=== PATIENT | male | born 1980 | race Caucasian/White ===

== ENCOUNTER 2023-08-12 12:13 | Outpatient (CLI) | payer BC, MEDICAID, SELFPAY ==
--- NOTE | 2023-08-12 12:30 | CT_ITS ---
WS: [id number] CT chest w con* [id number] HISTORY: R91.1 - Solitary pulmonary nodule TECHNIQUE: Axial imaging performed through the thorax. Coronal and sagittal reformats are submitted. All CT scans at [facility] use at least one of these dose optimization techniques: automated exposure control; mA and/or kV adjustment per patient size (includes targeted exams where dose is mat ched to clinical indication); or iterative reconstruction. CONTRAST: Omnipaque 350; 100 mL IV. DLP: 341.59 mGy.cm COMPARISON: None available. Lungs and central airway: Lungs are well aerated. There are 2, noncalcified pulmonary nodules. Micron odule image 25 of series 4 in the LEFT upper lobe. There is an additional nodule also less than 3 mm, image 45 of series 4 at the RIGHT lung base. Pleura: Normal. No pleural effusion. Heart and pericardium: Normal size heart with no pericardial effusion. Mediastinum and adalid: Small mediastinal and hilar lymph nodes. No adenopathy. Vessels: Normal size aortic and pulmonary artery. No coronary artery calcifications. Chest wall and lower neck: No soft tissue masses. Upper abdomen: Normal. Osseous structures: No destructive process. IMPRESSION: 1. There are 2 noncalcified pulmonary micronodules. One in the LEFT upper lobe and one at the RIGHT l rob base as described above. No prior studies or report for comparison. 2. No adenopathy or pneumonia.
[2023-08-12] MEDS: iohexol 350 mg/mL 500 mL Btl (per mL) IV (12:31)
== END 2023-08-12 12:14 | disposition home or self-care (01) ==
PROVIDERS: PCP Nurse Practitioner Family; Visit Provider Nurse Practitioner Family
DX: R91.8 Other nonspecific abnormal finding of lung field (principal)
CPT/HCPCS: 71260; Q9967

== ENCOUNTER → 2024-01-19 10:26 | Outpatient (BNVA) | payer BC, MEDICAID, SELFPAY | PROVIDERS: PCP Nurse Practitioner Family; Visit Provider Nurse Practitioner Family | DX: I10 Essential (primary) hypertension (principal) | CPT/HCPCS: 80053; 80061; 84443; 85025 ==

== ENCOUNTER 2024-08-30 08:00 | Outpatient (CLI) | payer BC, MEDICAID, SELFPAY ==
--- NOTE | 2024-08-30 08:00 | CT_ITS ---
WS: [id number] CT chest w con* [id number] HISTORY: R91.1 - Solitary pulmonary nodule TECHNIQUE: Axial imaging performed through the thorax. Coronal and sagittal reformats are submitted. All CT scans at [facility] use at least one of these dose optimization techniques: automated exposure control; mA and/or kV adjustment per patient size (includes targeted exams where dose is mat ched to clinical indication); or iterative reconstruction. CONTRAST: Omnipaque 350; 100 mL IV. DLP: 375.01 mGy.cm COMPARISON: 08/12/2023 Lungs and central airway: Slight pulmonary hyperexpansion. Previously described pulmonary nodules hav e not increased in size. LEFT upper lobe pulmonary nodules not definitely visualized today. 4 mm nodu le at the RIGHT lung base is unchanged. There is an additional nodule in the LEFT lower lobe measurin g 3.5 mm which was probably also present on the prior study but better visualized today due to less m otion artifact and slice selection. There are no concerning masses or nodules. Pleura: Normal. No pleural effusion. Heart and pericardium: Normal size heart with no pericardial effusion. Mediastinum and adalid: Mildly prominent mediastinal and hilar lymph nodes are indeterminate. Slight in crease in size since the prior CT of 08/12/2023. Vessels: Normal size aortic and pulmonary artery. No coronary artery calcifications. Chest wall and lower neck: No soft tissue masses. Upper abdomen: Normal. Osseous structures: Mild thoracic spondylosis. No destructive bone lesions. CT/CT chest w con* [id number] IMPRESSION: 1. No adverse progression of small pulmonary nodules since 08/12/2023. Addition al nodule measuring 3.5 mm in the LEFT lower lobe is identified today. This nod ule was also probably present on the prior study but better seen today due to v olume averaging and slice selection. No follow-up necessary. 2. Small, indeterminate hilar lymph nodes. Slightly increased in size since e prior study. With no history of malignancy this is probably a reactive proces s.
[2024-08-30] MEDS: iohexol 350 mg/mL 500 mL Btl (per mL) IV (08:34)
== END 2024-08-30 08:04 | disposition home or self-care (01) ==
PROVIDERS: PCP Nurse Practitioner Family; Visit Provider Nurse Practitioner Family
DX: R91.8 Other nonspecific abnormal finding of lung field (principal)
CPT/HCPCS: 71260